=== PATIENT | male | born 1970 | race Two or more races ===

== ENCOUNTER 2017-06-09 09:05 | Emergency (ER) | payer MEDICAID ==
--- NOTE | 2017-06-09 09:37 | ED Physician Chart ---
ED Chief Complaint/HPI - Patient Information Date Seen:: 06/09/17 Time Seen:: 09:15 Chief Complaint:: Right Knee Pain History of Present Illness:: onset x one hour of MS type sharp right knee pain after an accidental twisting type injury while exercising at a local gym one hour [employer]; pt denies LOC, ALOC, AMS, syncope, near-syncope, head/neck injuries, N/V, decreased activity, visual or gait changes; H/As, neck pain, cough, C/P, SOB, Abd. Pain, A/N/V/D/C, fever, chills, hip/back/flank pain, paresthesias, weakness, dizziness, vertigo, or urinary s/s; pt's last tetanus shot: < 5 years; UTD Allergies:: Allergies Allergy/AdvReac Type Severity Reaction Status Date / Time MDX No Known Allergies - Nka Allergy Verified 09/04/13 11:42 [No Known Allergies - Nka] Historian:: Patient Review:: Nurse's Note Reviewed ED Review of Systems - Review of Systems General/Constitutional: No fever, No chills, No weight loss, No weakness, No diaphoresis, No edema, No loss of appetite Skin: No skin lesions, No rash, No bruising Head: No headache, No light-headedness Eyes: No loss of vision, No pain, No diplopia ENT: No earache, No nasal drainage, No sore throat, No tinnitus Neck: No neck pain, No swelling, No thyromegaly, No stiffness, No mass noted Cardio Vascular: No chest pain, No palpitations, No PND, No orthopnea, No edema Pulmonary: No SOB, No cough, No sputum, No wheezing GI: No nausea, No vomiting, No diarrhea, No pain, No melena, No hematochezia, No constipation, No hematemesis G/U: No dysuria, No frequency, No hematuria, No nacturia Musculoskeletal: Bone or joint pain, No back pain, Muscle pain Endocrine: No polyuria, No polydipsia Psychiatric: No prior psych history, No depression, No anxiety, No suicidal ideation, No homicidal ideation, No auditory hallucination, No visual hallucination Hematopoietic: No bruising, No lymphadenopathy Allergic/Immuno: No urticaria, No angioedema Neurological: No syncope, No focal symptoms, No weakness, No paresthesia, No headache, No seizure, No dizziness, No confusion, No vertigo ED Past Medical History - Past Medical History Obtainable: Yes Past Medical History: HTN, Dyslipidemia, Arthritis Family History: HTN Social History: Non Smoker, No Alcohol, No Drug Use, Single Surgical History: other (Right Knee ORIF) Psychiatricy History: None Medication: Reviewed Family Medical History - Family Member Father History Unknown: Yes Ethnicity: Unknown Living Status: Still Living Hx Family Cancer: No Hx Family Coronary Artery Disease: Yes Hx Family Congestive Heart Failure: Yes Hx Family Hypertension: No Hx Family Stroke: Yes Hx Family Diabetes: No Hx Family Seizures: No Hx Family Dementia: No Hx Family AIDS: No Hx Family HIV: No Hx Family COPD: No Hx Family Hepatitis: No Hx Family Psychiatric Problems: No Hx Family Tuberculosis: No ED Physical Exam - Physical Examination General/Constitutional: Awake, Well-developed, well-nourished, Alert, No distress, GCS 15, Non-toxic appearing, Ambulatory Head: Atraumatic Eyes: Lids, conjuctiva normal, PERRL, EOMI Skin: Nl inspection, No rash, No skin lesions, No ecchymosis, Well hydrated, No lymphadenopathy ENMT: External ears, nose nl, TM canals nl, Nasal exam nl, Lips, teeth, gums nl , Oropharynx nl, Tonsils nl Neck: Nontender, Full ROM w/o pain, No JVD, No nuchal rigidity, No bruit, No mass, No stridor Other Neck comments:: supple; no meningeal signs; no cervical tenderness; Respiratory: Nl effort/Exclusion, Clear to Auscultation, No Wheeze/Rhonchi/Rales Cardio Vascular: RRR, No murmur, gallop, rubs, NL S1 S2, Carotid/Femoral/Distal pulses equal bilaterally GI: No tenderness/rebounding/guarding, No organomegaly, No hernia, Normal BS's, Nondistended, No mass/bruits, No McBurney tenderness Other GI comments:: no pulsatile masses : No CVA tenderness Extremities: No tenderness or effusion, Full ROM, normal strength in all extremities, No edema, Normal digits & nails Other Extremities comments:: Right Knee tenderness; no loss of ROMs; no FBs; no cellulitis; DTRs: 2+ bilaterally; Gait: WNL; no ligament instability; good motor, tendon, and sensory functions; good NV functions; - Oneal's sign; no calf tenderness; no swelling; no erythema; no DVT; no FBs; good NV functions Neuro/Psych: Alert/oriented, DTR's symmetric, Normal sensory exam, Normal motor strength, Judgement/insight normal, Mood normal, Normal gait, No focal deficits Misc: Normal back, No paraspinal tenderness ED Labs/Radiology/EKG Results - Radiology Results Comments:: No new Fx/Dislocations; + Hardware in good position; NAD ED Septic Shock - . Is Septic Shock (SBP<90, OR Lactate>4 mmol\L) present?: No ED Reassessment (Disposition) - Reassessment Reassessment:: pt is asymptomatic upon discharge Reassessment Condition:: Improved - Diagnosis Diagnosis:: Right Knee Pain; Right Knee Sprain; Osteoarthritis; S/P Right Knee Trauma/Injury - Aftercare/Follow up Instructions Aftercare/Follow-Up Instructions:: Counseled pt regarding lab results/diagnosis & need follow up, Refer to Discharge Instructions, Counseled pt & family regarding lab results/diagnosis & need follow up - Patient Disposition Discharge/Transfer:: Home Condition at Disposition:: Stable, Improved (RTER prn if existing s/s reoccur and/or get worse and/or any other new s/s occur; X-Rays Instructions; ACIs given for all above Dx; Refer to Orthopedist/Vascular Surgeon/Client Project Coordinator RONAN; F/ U with PMD in one day or prn; RTER prn if concerned)
--- NOTE | 2017-06-09 10:19 | Diagnostic Imaging Report ---
Left knee 3 views Indication: Trauma Comparison: none Findings: There is partially visualized sideplate and screw fixation of previous proximal tibial fracture. The distal aspect is incompletely visualized. No hardware loosening. Advanced degenerative changes are seen with there is a marginal osteophytic spurs and probable small ossicles. No acute fracture or joint effusion. Subcutaneous edema is noted. Impression: Evidence of prior proximal tibial fracture (probably subacute or chronic) with sideplate and screw fixation, partially visualized. No joint effusion is identified. As such, superimposed acute fracture is not suspected, however, clinical correlation and follow-up is recommended. Note that the distal aspect of the hardware was also not completely visualized. Additional tib-fib views may be obtained for further assessment Degenerative changes of the knee joint, which may be posttraumatic. In the setting of trauma, if clinical symptoms persist and there is continued concern for an occult fracture, follow up exams in 5-7 days is suggested.
== END 2017-06-09 10:58 | disposition home or self-care (01) ==
LOC: ER 09:05
DX: S83.91XA Sprain of unspecified site of right knee, initial encounter (principal); M17.11 Unilateral primary osteoarthritis, right knee; I10 Essential (primary) hypertension; E78.5 Hyperlipidemia, unspecified; X37.1XXA Tornado, initial encounter; Y93.89 Activity, other specified; Y92.89 Other specified places as the place of occurrence of the external cause; Y99.8 Other external cause status
CPT/HCPCS: 99284; 96372; 73564; J1885; 73562-TC-RT; Z7502